=== PATIENT | female | born 1945 | race Caucasian/White ===

== ENCOUNTER 2016-10-08 06:15 | Day surgery (SDC) | payer MEDICARE, BC ==
[~2016-10-08] VITALS: Ht 157.5 cm; Wt 65.3 kg
[~2016-10-08 06:15] MED LIST: ASPI-664 PO; IBUP100T46 PO; METO-429 PO; OMEG1CAP2 PO; SYN75 PO
[2016-10-08 07:39] VITALS: Ht 157.5 cm; Wt 65.3 kg
[2016-10-08] MEDS ORDERED: PROPOFOL 20 ML ONE ×2 (07:41→08:40)
[2016-10-08] MEDS ORDERED: METOCLOPRAMIDE 10 MG INJ ONE (07:42)
[2016-10-08] MEDS ORDERED: DEXAMETHASONE 4 MG/ML 1 ML INJ ONE (07:42)
[2016-10-08] MEDS ORDERED: ONDANSETRON 4 MG INJ ONE (07:42)
[2016-10-08] MEDS ORDERED: FAMOTIDINE 20 MG INJ ONE (07:42)
[2016-10-08 08:08] VITALS: BP 148/86; PULSE 71; RESP 17
[2016-10-08 09:05] VITALS: BP 144/63; PULSE 60; RESP 12
--- NOTE | 2016-11-02 08:26 | GILP ---
DATE OF PROCEDURE: SURGEON: Radha Eubanks MD. PROCEDURE PERFORMED: Colonoscopy and biopsy. PREOP DIAGNOSES: 1. Change in bowel habits. 2. Elevated CEA level. POSTOP DIAGNOSES: 1. Colonoscopy all the way to the cecum. 2. Small colon polyp, removed. 3. Internal hemorrhoids. INDICATION: The patient is a 8-year-old female who noticed change in the bowel habits. She elevated CEA level. The patient has history of colon polyps. So the patient was scheduled for colonoscopy for further evaluation. The procedure and possible complications were well-explained to the patient. She understood and consented to the procedure. DESCRIPTION OF PROCEDURE: Under influence of anesthesia, the colonoscope was carefully introduced in the rectum. Under direct vision it was advanced all the way to the cecum. Findings: The patient had a small sigmoid colon polyp and it was removed using the biopsy forceps. She had internal hemorrhoids. She tolerated the procedure very well. There is no complications from the procedure. At the end of procedure she was awake, with stable vital signs and she was discharged home to the care of her family. IMPRESSION: 1. Colonoscopy all the way to the cecum. 2. Small sigmoid colon polyp was removed. 3. Internal hemorrhoids. PLAN: Next screening colonoscopy in 10 years. Dictated By: MD JEFF West/rajiv/evelyn /Document#: [id number]
== END 2016-10-08 11:49 | disposition home or self-care (01) ==
LOC: GIL 06:15
PROVIDERS: ATTEND Internal Medicine Gastroenterology
DX: D12.5 Benign neoplasm of sigmoid colon (principal); K64.8 Other hemorrhoids; R19.4 Change in bowel habit; R97.0 Elevated carcinoembryonic antigen [CEA]; I10 Essential (primary) hypertension; E78.5 Hyperlipidemia, unspecified; E03.9 Hypothyroidism, unspecified; M19.90 Unspecified osteoarthritis, unspecified site; K21.9 Gastro-esophageal reflux disease without esophagitis; Z79.82 Long term (current) use of aspirin; Z88.5 Allergy status to narcotic agent
CPT/HCPCS: 45380; 88305; J1100; J2405; J2765

== ENCOUNTER 2018-01-31 09:52 | Day surgery (SDC) | END 2018-01-31 13:34 | disposition home or self-care (01) ==